=== PATIENT | female | born 1995 | race Caucasian/White ===

== ENCOUNTER 2018-10-10 22:52 | Emergency (ER) | payer OTHER ==
[~2018-10-10] VITALS: Ht 160 cm; Wt 60.3 kg
[2018-10-10 22:56] VITALS: Ht 160 cm; Wt 60.3 kg
[2018-10-11 01:36] VITALS: BP 111/64
== END 2018-10-11 01:36 | disposition home or self-care (01) ==
LOC: ED 22:52
DX: F45.8 Other somatoform disorders (principal)